=== PATIENT | male | born 1995 | race Caucasian/White ===

== ENCOUNTER 2017-09-18 19:00 | Emergency (ER) | payer BC ==
[~2017-09-18] VITALS: Ht 177.8 cm; Wt 76.9 kg
[~2017-09-18 19:00] MED LIST: ATARAX,VISTARIL25 MG PO
[2017-09-18 21:14] VITALS: BP 128/85
== END 2017-09-18 21:15 | disposition home or self-care (01) ==
LOC: EME 19:00
DX: S00.93XA Contusion of unspecified part of head, initial encounter (principal); V49.40XA Driver injured in collision with unspecified motor vehicles in traffic accident, initial encounter; F17.210 Nicotine dependence, cigarettes, uncomplicated; F32.9 Major depressive disorder, single episode, unspecified
CPT/HCPCS: 70450; 99281; 99284

== ENCOUNTER 2017-11-30 06:57 | Emergency (ER) | payer BC ==
[~2017-11-30] VITALS: Ht 177.8 cm; Wt 78.2 kg
[2017-11-30] MEDS ORDERED: NAPROSYN500 MG PO (09:44)
[2017-11-30] MEDS ORDERED: FLEXERIL10 MG PO (09:44)
[2017-11-30] MEDS ORDERED: GUAIFENESIN600 M1 PO (09:44)
[2017-11-30] MEDS ORDERED: TESSALON200 MG PO (09:44)
[2017-11-30 09:56] VITALS: BP 122/68
== END 2017-11-30 09:57 | disposition home or self-care (01) ==
LOC: EME 06:57
DX: M25.432 Effusion, left wrist (principal); Z53.21 Procedure and treatment not carried out due to patient leaving prior to being seen by health care provider
CPT/HCPCS: 87502; 99281; 99284; J1885